=== PATIENT | female | born 1980 | race Hispanic/Latino ===

== ENCOUNTER 2016-10-25 14:03 | Emergency (ER) | payer OTHER ==
[2016-10-25 14:03] VITALS: BMI 23.7
[2016-10-25 14:52] VITALS: BP 117/71; PULSE 74; RESP 16; TEMP 98.6; O2SAT 98
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
[2016-10-25 15:47] LABS: URINE BILIRUBIN NEGATIVE (NEGATIVE); URINE BLOOD NEGATIVE (NEGATIVE); URINE GLUCOSE (UA) NEGATIVE (NEGATIVE); URINE LEUKOCYTE ESTERASE NEGATIVE Leu/uL (NEGATIVE); URINE NITRATE NEGATIVE (NEGATIVE); URINE PROTEIN NEGATIVE mg/dL (<30 mg/dL); URINE UROBILINOGEN 0.2 E.U./dL (<1 E.U./dL)
[2016-10-25 15:50] LABS: URINE APPEARANCE CLEAR (CLEAR); URINE COLOR YELLOW (YELLOW)
== END 2016-10-25 15:37 | disposition home or self-care (01) ==
LOC: ED 14:03
DX: G89.29 Other chronic pain (principal); M54.5 Low back pain
CPT/HCPCS: 81003; 96372; 99283; J1885